=== PATIENT | female | born 1965 | race Two or more races ===

== ENCOUNTER 2025-04-28 15:22 | Outpatient (CLI) | payer OTHER ==
[2025-04-28 16:13] LABS: CREATININE SERUM 0.75 mg/dL (0.55-1.02); GFR 78.56
== END 2025-04-28 15:27 | disposition home or self-care (01) ==
LOC: LAB 15:22
PROVIDERS: ATTEND Radiology Diagnostic Radiology
DX: N88.9 Noninflammatory disorder of cervix uteri, unspecified (principal)

== ENCOUNTER 2025-04-29 11:22 | Outpatient (CLI) | payer OTHER | END 2025-04-29 11:30 | disposition home or self-care (01) | LOC: MRI 11:22 | PROVIDERS: ATTEND Student in an Organized Health Care Education/Training Program | DX: D25.9 Leiomyoma of uterus, unspecified (principal); N88.9 Noninflammatory disorder of cervix uteri, unspecified | CPT/HCPCS: 72197 ==